=== PATIENT | male | born 1980 | race Caucasian/White ===

== ENCOUNTER 2020-11-22 01:23 | Inpatient (IN) | payer MEDICAID ==
[~2020-11-22] VITALS: Ht 182.9 cm; Wt 152.0 kg
[2020-11-22] VITALS (57 sets, daily range): BP systolic 83–152; BP diastolic 42–88
[2020-11-22] MEDS ORDERED: SODIUM CHLORIDE 0.9% 1,000 ML IVB ONE (01:45)
[2020-11-22] MEDS ORDERED: NALOXONE HCL 0.4 MG/ML VIAL IV ONE (01:45)
[2020-11-22] MEDS ORDERED: NALOXONE HCL 1MG/ML 2ML SYRINGE IV ONE (01:45)
[2020-11-22] MEDS: MIDAZOLAM DRIP 50 mg/50mL 50 ML IV SCH ×4 (01:45→17:52)
[2020-11-22 02:40] LABS: Hematocrit 46.9 % (41.0-53.0); Hemoglobin 16.1 g/dL (13.5-17.5)
[2020-11-22 02:58] LABS: Anion Gap 13 (5-15); Blood Urea Nitrogen 13 mg/dL (7-18); Calcium 8.2 mg/dL (8.5-10.1); Carbon Dioxide 20 mmol/L (21-32); Chloride 105 mmol/L (98-107); Glucose 194 mg/dL (74-106); Magnesium 2.6 mg/dL (1.6-2.6); Potassium 3.5 mmol/L (3.5-5.1); Sodium 138 mmol/L (136-145)
[2020-11-22 03:00] LABS: BUN/Creatinine Ratio 10.2; GFR African American 79 mL/min; GFR Non-African American 66 mL/min; INR 1.08 (0.9-1.15); Partial Thromboplastin Time 25.6 sec (23.0-31.2)
[2020-11-22 03:02] LABS: Lactic Acid w/Reflex 4.4 mmol/L (0.4-2.0)
[2020-11-22 05:03] LABS: Urine Bacteria FEW /hpf (None Seen); Urine Blood 1+ /uL (Negative); Urine Hyaline Cast MOD /lpf (0 - 2); Urine Mucus FEW (None Seen); Urine Specific Gravity 1.019 (1.001-1.035); Urine Sperm PRESENT /hpf (None Seen); Urine WBC 6 /hpf (0 - 3)
[2020-11-22 05:10] LABS: Amphetamine Screen, Urine POSITIVE (NEGATIVE); Barbiturate Scree,Urine NEGATIVE (NEGATIVE); Benzodiazephine Screen, Urine NEGATIVE (NEGATIVE); Cannabinoid Screen, Urine POSITIVE (NEGATIVE); Cocaine Screen, Urine NEGATIVE (NEGATIVE); Opiate Scree,Urine NEGATIVE (NEGATIVE); Phencyclidine Screen, Urine NEGATIVE (NEGATIVE)
[2020-11-22 06:51] LABS: Basophils # (auto) 0.1 10 ^3/uL (0-0.2); Basophils % (auto) 0.5 % (0.0-2.0); Eosinophils # (auto) 0 10 ^3/uL (0-0.8); Eosinophils % (auto) 0.2 % (0.0-7.0); Hematocrit 42.8 % (41.0-53.0); Hemoglobin 14.7 g/dL (13.5-17.5); Lymphocytes % (auto) 9.1 % (10.0-50.0); Mean Corpuscular Hemoglobin 30.2 pg (28.0-32.0); Mean Corpuscular Hgb Conc. 34.3 g/dL (32.0-36.0); Mean Corpuscular Volume 88.1 fL (80.0-100.0); Monocytes # (auto) 0.8 10 ^3/uL (0-1.3); Monocytes % (auto) 7.2 % (0.0-12.0); Neutrophils # (auto) 8.8 10 ^3/uL (1.6-8.6); Nucleated Red Blood Cells % 0.4 %; Red Blood Cells 4.86 10^6/uL (4.5-5.90); Red Cell Distribution Width 13.5 % (11.8-14.3); White Blood Cell 10.6 10^3/uL (4.4-10.8)
[2020-11-22] MEDS ORDERED: SODIUM CHLORIDE 0.9% 3,000 ML IV ONE (07:30)
[2020-11-22] MEDS ORDERED: NOREPINEPHRINE 8 MG/250ML KIT 250 ML IV ONE (07:33)
[2020-11-22] MEDS ORDERED: NOREPINEPHRINE 8 MG/250ML KIT 250 ML IV SCH (08:15)
[2020-11-22] MEDS ORDERED: ALBUTEROL SULF 2.5 MG/0.5ML(0.5%) NEB SOLN NEB SCH (10:45)
[2020-11-22] MEDS ORDERED: IPRATROPIUM BROM 0.5 MG/2.5ML INH SOL NEB SCH (10:45)
[2020-11-22] MEDS ORDERED: MORPHINE SULFATE INJECTION 2 MG/ML SYRG IV PRN (10:45)
[2020-11-22] MEDS ORDERED: NITROGLYCERIN 0.4 MG SL TAB SL PRN (10:45)
[2020-11-22] MEDS: NOREPINEPHRINE 8 MG/250ML KIT 250 ML IV SCH (11:00)
[2020-11-22] MEDS: fentaNYL Drip 2500mCg/250mlNS 250 ML IV SCH (11:09)
[2020-11-22] MEDS: ENOXAPARIN SOD 40 MG/0.4 ML SYRINGE SC SCH (11:10)
[2020-11-22] MEDS: ACETAMINOPHEN 650 mg PER 20.3 mL UD GT PRN (11:32)
[2020-11-22] MEDS: CLINDAMYCIN 300MG IV 50 ML IV SCH ×2 (13:58→22:26)
[2020-11-22] MEDS: DOXYCYCLINE 100MG/250ML 250 ML IV SCH (15:25)
[2020-11-22] MEDS: ALBUTEROL SULF 2.5 MG/0.5ML(0.5%) NEB SOLN NEB SCH (18:36)
[2020-11-22] MEDS: IPRATROPIUM BROM 0.5 MG/2.5ML INH SOL NEB SCH (18:36)
[2020-11-22] MEDS: SODIUM CHLOR 0.9% PF (SALINE LOCK) 10ML VIAL/SYR IV SCH (22:27)
[2020-11-23] VITALS (93 sets, daily range): BP systolic 95–161; BP diastolic 40–84
[2020-11-23] MEDS: ALBUTEROL SULF 2.5 MG/0.5ML(0.5%) NEB SOLN NEB SCH ×4 (00:17→18:30)
[2020-11-23] MEDS: IPRATROPIUM BROM 0.5 MG/2.5ML INH SOL NEB SCH ×4 (00:17→18:30)
[2020-11-23] MEDS: DOXYCYCLINE 100MG/250ML 250 ML IV SCH (03:34)
[2020-11-23 04:26] LABS: Basophils # (auto) 0.1 10 ^3/uL (0-0.2); Basophils % (auto) 0.3 % (0.0-2.0); Eosinophils # (auto) 0 10 ^3/uL (0-0.8); Eosinophils % (auto) 0.2 % (0.0-7.0); Hematocrit 42.5 % (41.0-53.0); Hemoglobin 15.2 g/dL (13.5-17.5); Lymphocytes # (auto) 1.4 10 ^3/uL (0.4-5.4); Mean Corpuscular Hemoglobin 31.4 pg (28.0-32.0); Mean Corpuscular Hgb Conc. 35.7 g/dL (32.0-36.0); Monocytes % (auto) 5.3 % (0.0-12.0); Neutrophils # (auto) 17.1 10 ^3/uL (1.6-8.6); Neutrophils % (auto) 87.2 % (37.0-80.0); Nucleated Red Blood Cells % 0.6 %; Red Blood Cells 4.83 10^6/uL (4.5-5.90); Red Cell Distribution Width 13.8 % (11.8-14.3); White Blood Cell 19.6 10^3/uL (4.4-10.8)
[2020-11-23 04:39] LABS: BUN/Creatinine Ratio 20.3; Potassium 3.8 mmol/L (3.5-5.1)
[2020-11-23] MEDS: CLINDAMYCIN 300MG IV 50 ML IV SCH (06:07)
[2020-11-23] MEDS: MIDAZOLAM DRIP 50 mg/50mL 50 ML IV SCH (09:20)
[2020-11-23] MEDS: SODIUM CHLOR 0.9% PF (SALINE LOCK) 10ML VIAL/SYR IV SCH ×2 (09:20→20:37)
[2020-11-23] MEDS: ENOXAPARIN SOD 40 MG/0.4 ML SYRINGE SC SCH (09:20)
[2020-11-23] MEDS: ACETAMINOPHEN 650 mg PER 20.3 mL UD GT PRN ×2 (09:20→20:38)
[2020-11-23] MEDS: NOREPINEPHRINE 8 MG/250ML KIT 250 ML IV SCH (09:21)
[2020-11-23] MEDS: fentaNYL Drip 2500mCg/250mlNS 250 ML IV SCH (09:21)
[2020-11-23] MEDS ORDERED: PIPERACILLIN-TAZOB 3.375GM 100 ML IV ONE (13:00)
[2020-11-23] MEDS: ESOMEPRAZOLE 40 MG/5ml VIAL INJ IV SCH (16:38)
[2020-11-23] MEDS: PIPERACILLIN-TAZOB 3.375GM 100 ML IV SCH (18:06)
[2020-11-23] MEDS: Jevity 1.2 Cal/Fiber 1 Liter GT SCH (20:38)
[2020-11-23] MEDS: LINEZOLID 600MG/300ML 300 ML IV SCH (20:58)
[2020-11-24] VITALS (102 sets, daily range): BP systolic 87–126; BP diastolic 46–75
[2020-11-24] MEDS: ALBUTEROL SULF 2.5 MG/0.5ML(0.5%) NEB SOLN NEB SCH ×4 (00:06→18:19)
[2020-11-24] MEDS: IPRATROPIUM BROM 0.5 MG/2.5ML INH SOL NEB SCH ×4 (00:06→18:19)
[2020-11-24] MEDS: PIPERACILLIN-TAZOB 3.375GM 100 ML IV SCH ×3 (00:27→11:50)
[2020-11-24] MEDS: MIDAZOLAM DRIP 50 mg/50mL 50 ML IV SCH ×2 (00:28→15:38)
[2020-11-24] MEDS: ACETAMINOPHEN 650 mg PER 20.3 mL UD GT PRN ×3 (03:00→16:00)
[2020-11-24 04:44] LABS: Basophils # (auto) 0 10 ^3/uL (0-0.2); Basophils % (auto) 0.3 % (0.0-2.0); Eosinophils # (auto) 0.1 10 ^3/uL (0-0.8); Hematocrit 39.9 % (41.0-53.0); Lymphocytes # (auto) 1.2 10 ^3/uL (0.4-5.4); Lymphocytes % (auto) 8.2 % (10.0-50.0); Mean Corpuscular Hemoglobin 30.8 pg (28.0-32.0); Mean Corpuscular Hgb Conc. 35.1 g/dL (32.0-36.0); Monocytes # (auto) 1.1 10 ^3/uL (0-1.3); Monocytes % (auto) 7.6 % (0.0-12.0); Neutrophils % (auto) 82.9 % (37.0-80.0); Red Blood Cells 4.54 10^6/uL (4.5-5.90); Red Cell Distribution Width 13.4 % (11.8-14.3); White Blood Cell 14.5 10^3/uL (4.4-10.8)
[2020-11-24 04:52] LABS: Potassium 4.5 mmol/L (3.5-5.1)
[2020-11-24 04:59] LABS: BUN/Creatinine Ratio 18.6; Calcium 8.1 mg/dL (8.5-10.1)
[2020-11-24] MEDS: fentaNYL Drip 2500mCg/250mlNS 250 ML IV SCH (05:47)
[2020-11-24] MEDS: LINEZOLID 600MG/300ML 300 ML IV SCH ×2 (09:26→23:10)
[2020-11-24] MEDS: ENOXAPARIN SOD 40 MG/0.4 ML SYRINGE SC SCH (09:26)
[2020-11-24] MEDS: SODIUM CHLOR 0.9% PF (SALINE LOCK) 10ML VIAL/SYR IV SCH ×2 (09:26→23:10)
[2020-11-24] MEDS: ESOMEPRAZOLE 40 MG/5ml VIAL INJ IV SCH (09:32)
[2020-11-24] MEDS: NOREPINEPHRINE 8 MG/250ML KIT 250 ML IV SCH (10:45)
[2020-11-24] MEDS ORDERED: CEFTRIAXONE SODIUM 2 GM in D5W 5% 50 ML IV ONE (15:45)
[2020-11-24] MEDS: PIPERACILLIN-TAZO 4.5GM 100 ML IV SCH (18:13)
[2020-11-24] MEDS: Jevity 1.2 Cal/Fiber 1 Liter GT SCH (18:26)
[2020-11-25] VITALS (108 sets, daily range): BP systolic 92–133; BP diastolic 58–79
[2020-11-25] MEDS: ALBUTEROL SULF 2.5 MG/0.5ML(0.5%) NEB SOLN NEB SCH ×4 (00:18→18:44)
[2020-11-25] MEDS: IPRATROPIUM BROM 0.5 MG/2.5ML INH SOL NEB SCH ×4 (00:18→18:45)
[2020-11-25] MEDS: PIPERACILLIN-TAZO 4.5GM 100 ML IV SCH ×2 (02:41→09:39)
[2020-11-25 03:53] LABS: Basophils # (auto) 0.1 10 ^3/uL (0-0.2); Basophils % (auto) 0.6 % (0.0-2.0); Eosinophils # (auto) 0.2 10 ^3/uL (0-0.8); Eosinophils % (auto) 2.5 % (0.0-7.0); Hematocrit 39.4 % (41.0-53.0); Hemoglobin 13.6 g/dL (13.5-17.5); Lymphocytes % (auto) 10.8 % (10.0-50.0); Mean Corpuscular Hemoglobin 30.6 pg (28.0-32.0); Mean Corpuscular Hgb Conc. 34.5 g/dL (32.0-36.0); Mean Corpuscular Volume 88.6 fL (80.0-100.0); Monocytes # (auto) 0.9 10 ^3/uL (0-1.3); Monocytes % (auto) 8.8 % (0.0-12.0); Neutrophils # (auto) 7.5 10 ^3/uL (1.6-8.6); Neutrophils % (auto) 77.3 % (37.0-80.0); Nucleated Red Blood Cells % 0.1 %; Red Blood Cells 4.45 10^6/uL (4.5-5.90); Red Cell Distribution Width 13.5 % (11.8-14.3); White Blood Cell 9.7 10^3/uL (4.4-10.8)
[2020-11-25 04:08] LABS: Albumin 2.1 g/dL (3.4-5.0); Calcium 7.7 mg/dL (8.5-10.1); Potassium 3.7 mmol/L (3.5-5.1)
[2020-11-25 04:12] LABS: BUN/Creatinine Ratio 23.2; Bilirubin, Total 1.1 mg/dL (0.2-1.0); Total Protein 6.2 g/dL (6.4-8.2)
[2020-11-25] MEDS: ACETAMINOPHEN 650 mg PER 20.3 mL UD GT PRN ×2 (05:35→20:08)
[2020-11-25] MEDS: MIDAZOLAM DRIP 50 mg/50mL 50 ML IV SCH ×2 (06:23→20:07)
[2020-11-25] MEDS: ONDANSETRON HCL 4 MG/2 ML VIAL IV PRN (06:23)
[2020-11-25] MEDS: fentaNYL Drip 2500mCg/250mlNS 250 ML IV SCH (06:24)
[2020-11-25] MEDS: SODIUM CHLOR 0.9% PF (SALINE LOCK) 10ML VIAL/SYR IV SCH ×2 (09:39→20:07)
[2020-11-25] MEDS: ESOMEPRAZOLE 40 MG/5ml VIAL INJ IV SCH (09:39)
[2020-11-25] MEDS: ENOXAPARIN SOD 40 MG/0.4 ML SYRINGE SC SCH (09:40)
[2020-11-25] MEDS: LINEZOLID 600MG/300ML 300 ML IV SCH ×2 (09:40→20:07)
[2020-11-25] MEDS ORDERED: CEFTRIAXONE SODIUM 2 GM in D5W 5% 50 ML IV SCH (10:00)
[2020-11-25] MEDS: NOREPINEPHRINE 8 MG/250ML KIT 250 ML IV SCH (10:45)
[2020-11-25] MEDS ORDERED: D5W/SOD CHLO 0.9% 1,000 ML IV SCH (13:45)
[2020-11-25] MEDS ORDERED: FUROSEMIDE 20 MG/2 ML VIAL IV ONE (13:45)
[2020-11-25] MEDS: MEROPENEM 1GM IVPB 100 ML IV SCH ×2 (14:16→22:55)
[2020-11-25] MEDS: ACCU-CHEK COMFORT CURVE STRIP VI SCH ×2 (17:52→23:43)
[2020-11-25] MEDS: InsuLIN REG 1unit/0.01ml Soln (100units/ml) SC SCH ×2 (17:52→23:42)
[2020-11-25] MEDS: DEXTROSE (50%) 50ML SYRG IV PRN (23:43)
[2020-11-26] VITALS (105 sets, daily range): BP systolic 88–142; BP diastolic 53–93
[2020-11-26] MEDS: fentaNYL Drip 2500mCg/250mlNS 250 ML IV SCH (00:30)
[2020-11-26] MEDS: ALBUTEROL SULF 2.5 MG/0.5ML(0.5%) NEB SOLN NEB SCH ×4 (00:45→18:13)
[2020-11-26] MEDS: IPRATROPIUM BROM 0.5 MG/2.5ML INH SOL NEB SCH ×4 (00:45→18:13)
[2020-11-26] MEDS: NOREPINEPHRINE 8 MG/250ML KIT 250 ML IV SCH (02:02)
[2020-11-26 04:16] LABS: Basophils # (auto) 0 10 ^3/uL (0-0.2); Basophils % (auto) 0.6 % (0.0-2.0); Eosinophils # (auto) 0.2 10 ^3/uL (0-0.8); Eosinophils % (auto) 3.1 % (0.0-7.0); Hematocrit 41.2 % (41.0-53.0); Hemoglobin 14.3 g/dL (13.5-17.5); Lymphocytes # (auto) 0.9 10 ^3/uL (0.4-5.4); Mean Corpuscular Hemoglobin 30.4 pg (28.0-32.0); Mean Corpuscular Hgb Conc. 34.6 g/dL (32.0-36.0); Mean Corpuscular Volume 87.9 fL (80.0-100.0); Monocytes # (auto) 0.9 10 ^3/uL (0-1.3); Monocytes % (auto) 12.6 % (0.0-12.0); Neutrophils # (auto) 5.3 10 ^3/uL (1.6-8.6); Neutrophils % (auto) 71.7 % (37.0-80.0); Nucleated Red Blood Cells % 0.3 %; Red Blood Cells 4.69 10^6/uL (4.5-5.90); Red Cell Distribution Width 13.6 % (11.8-14.3); White Blood Cell 7.4 10^3/uL (4.4-10.8)
[2020-11-26 04:36] LABS: Calcium 8.3 mg/dL (8.5-10.1); Potassium 3.2 mmol/L (3.5-5.1)
[2020-11-26 04:39] LABS: BUN/Creatinine Ratio 21.4
[2020-11-26] MEDS: MEROPENEM 1GM IVPB 100 ML IV SCH (05:22)
[2020-11-26] MEDS: ACCU-CHEK COMFORT CURVE STRIP VI SCH ×3 (05:22→18:17)
[2020-11-26] MEDS: InsuLIN REG 1unit/0.01ml Soln (100units/ml) SC SCH ×3 (05:22→18:00)
[2020-11-26] MEDS ORDERED: POTASSIUM CHL 20MEQ/100ML 100 ML IV ONE (06:45)
[2020-11-26] MEDS: LINEZOLID 600MG/300ML 300 ML IV SCH (09:17)
[2020-11-26] MEDS: SODIUM CHLOR 0.9% PF (SALINE LOCK) 10ML VIAL/SYR IV SCH ×2 (09:17→21:44)
[2020-11-26] MEDS: ESOMEPRAZOLE 40 MG/5ml VIAL INJ IV SCH (09:17)
[2020-11-26] MEDS: ENOXAPARIN SOD 40 MG/0.4 ML SYRINGE SC SCH (09:17)
[2020-11-26] MEDS: DEXTROSE (50%) 50ML SYRG IV PRN (11:29)
[2020-11-26] MEDS ORDERED: ceFAZolin 1GM/50ML 50 ML IV ONE (12:00)
[2020-11-26] MEDS: D5W 5% 1,000 ML IV SCH (12:16)
[2020-11-26] MEDS: ceFAZolin 1GM/50ML 50 ML IV SCH ×2 (13:24→21:44)
[2020-11-26] MEDS: MIDAZOLAM DRIP 50 mg/50mL 50 ML IV SCH (21:49)
[2020-11-27] VITALS (106 sets, daily range): BP systolic 98–128; BP diastolic 59–94
[2020-11-27] MEDS: ALBUTEROL SULF 2.5 MG/0.5ML(0.5%) NEB SOLN NEB SCH ×4 (00:25→18:49)
[2020-11-27] MEDS: IPRATROPIUM BROM 0.5 MG/2.5ML INH SOL NEB SCH ×4 (00:25→18:49)
[2020-11-27] MEDS: D5W 5% 1,000 ML IV SCH ×2 (01:05→17:03)
[2020-11-27] MEDS: MIDAZOLAM DRIP 50 mg/50mL 50 ML IV SCH ×3 (02:38→19:51)
[2020-11-27] MEDS: ACCU-CHEK COMFORT CURVE STRIP VI SCH ×4 (02:42→18:00)
[2020-11-27] MEDS: fentaNYL Drip 2500mCg/250mlNS 250 ML IV SCH ×2 (02:57→19:52)
[2020-11-27 04:18] LABS: Basophils # (auto) 0.1 10 ^3/uL (0-0.2); Eosinophils # (auto) 0.2 10 ^3/uL (0-0.8); Eosinophils % (auto) 4.5 % (0.0-7.0); Hematocrit 40.8 % (41.0-53.0); Hemoglobin 14.4 g/dL (13.5-17.5); Lymphocytes % (auto) 20.4 % (10.0-50.0); Mean Corpuscular Hemoglobin 30.4 pg (28.0-32.0); Mean Corpuscular Hgb Conc. 35.4 g/dL (32.0-36.0); Mean Corpuscular Volume 86.1 fL (80.0-100.0); Monocytes # (auto) 0.8 10 ^3/uL (0-1.3); Neutrophils # (auto) 2.9 10 ^3/uL (1.6-8.6); Neutrophils % (auto) 58.1 % (37.0-80.0); Nucleated Red Blood Cells % 0.2 %; Red Blood Cells 4.74 10^6/uL (4.5-5.90)
[2020-11-27 04:37] LABS: Calcium 8.6 mg/dL (8.5-10.1); Potassium 3.1 mmol/L (3.5-5.1)
[2020-11-27 04:40] LABS: BUN/Creatinine Ratio 15.4
[2020-11-27] MEDS: ceFAZolin 1GM/50ML 50 ML IV SCH ×3 (05:38→21:31)
[2020-11-27] MEDS: InsuLIN REG 1unit/0.01ml Soln (100units/ml) SC SCH ×4 (05:47→18:42)
[2020-11-27] MEDS: ENOXAPARIN SOD 40 MG/0.4 ML SYRINGE SC SCH (10:00)
[2020-11-27] MEDS: ESOMEPRAZOLE 40 MG/5ml VIAL INJ IV SCH (10:00)
[2020-11-27] MEDS: SODIUM CHLOR 0.9% PF (SALINE LOCK) 10ML VIAL/SYR IV SCH ×2 (10:05→21:32)
[2020-11-27] MEDS: POTASSIUM CHL 20MEQ/100ML 100 ML IV SCH ×2 (11:16→12:45)
[2020-11-27] MEDS: NOREPINEPHRINE 8 MG/250ML KIT 250 ML IV SCH (11:16)
[2020-11-27] MEDS ORDERED: PROPOFOL 0 ML IV ONE (15:35)
[2020-11-27] MEDS: PROPOFOL 100 ML IV SCH (17:04)
[2020-11-27] MEDS: ACETYLCYSTEINE 20%(200MG/ML) SOL 4ML NEB SCH (18:49)
[2020-11-28] VITALS (95 sets, daily range): BP systolic 85–132; BP diastolic 51–111
[2020-11-28] MEDS: IPRATROPIUM BROM 0.5 MG/2.5ML INH SOL NEB SCH ×4 (00:08→18:25)
[2020-11-28] MEDS: ALBUTEROL SULF 2.5 MG/0.5ML(0.5%) NEB SOLN NEB SCH ×4 (00:08→18:24)
[2020-11-28] MEDS: ACETYLCYSTEINE 20%(200MG/ML) SOL 4ML NEB SCH ×4 (00:09→18:25)
[2020-11-28] MEDS: MIDAZOLAM DRIP 50 mg/50mL 50 ML IV SCH ×2 (00:18→21:59)
[2020-11-28] MEDS: ACCU-CHEK COMFORT CURVE STRIP VI SCH ×4 (01:26→19:57)
[2020-11-28 04:42] LABS: BUN/Creatinine Ratio 17.5; Calcium 8.2 mg/dL (8.5-10.1); Potassium 3.2 mmol/L (3.5-5.1)
[2020-11-28 04:49] LABS: Hematocrit 38.6 % (41.0-53.0); Hemoglobin 13.6 g/dL (13.5-17.5); Mean Corpuscular Hemoglobin 30.5 pg (28.0-32.0); Mean Corpuscular Hgb Conc. 35.1 g/dL (32.0-36.0); Mean Corpuscular Volume 86.9 fL (80.0-100.0); Red Blood Cells 4.45 10^6/uL (4.5-5.90); Red Cell Distribution Width 13.2 % (11.8-14.3); White Blood Cell 4.6 10^3/uL (4.4-10.8)
[2020-11-28 04:54] LABS: Basophils % (manual) 0 (0.0-2.0); Blast Cells 0; Myelocytes % 0; Promyelocytes % 0; Reactive Lymphocytes 0
[2020-11-28] MEDS: InsuLIN REG 1unit/0.01ml Soln (100units/ml) SC SCH ×4 (05:42→18:00)
[2020-11-28] MEDS: ceFAZolin 1GM/50ML 50 ML IV SCH ×3 (05:42→21:59)
[2020-11-28 05:51] LABS: Band Neutrophils % (manual) 13; Eosinophils % (manual) 2 (0-7); Lymphocytes % (manual) 16 (10.0-50.0); Metamyelocytes % 1; Monocytes % (manual) 21 (0-12)
[2020-11-28] MEDS: ENOXAPARIN SOD 40 MG/0.4 ML SYRINGE SC SCH (10:30)
[2020-11-28] MEDS: ESOMEPRAZOLE 40 MG/5ml VIAL INJ IV SCH (10:30)
[2020-11-28] MEDS: D5W 5% 1,000 ML IV SCH (10:30)
[2020-11-28] MEDS: SODIUM CHLOR 0.9% PF (SALINE LOCK) 10ML VIAL/SYR IV SCH ×2 (10:31→21:59)
[2020-11-28] MEDS: NOREPINEPHRINE 8 MG/250ML KIT 250 ML IV SCH (10:45)
[2020-11-28] MEDS: POTASSIUM CHL 20MEQ/100ML 100 ML IV SCH ×2 (12:32→14:05)
[2020-11-28] MEDS: PROPOFOL 100 ML IV SCH (16:00)
[2020-11-29] VITALS (93 sets, daily range): BP systolic 96–152; BP diastolic 57–92
[2020-11-29] MEDS: ACCU-CHEK COMFORT CURVE STRIP VI SCH ×4 (00:09→18:09)
[2020-11-29] MEDS: IPRATROPIUM BROM 0.5 MG/2.5ML INH SOL NEB SCH ×4 (00:30→19:07)
[2020-11-29] MEDS: ALBUTEROL SULF 2.5 MG/0.5ML(0.5%) NEB SOLN NEB SCH ×4 (00:30→19:07)
[2020-11-29] MEDS: ACETYLCYSTEINE 20%(200MG/ML) SOL 4ML NEB SCH ×4 (00:31→19:07)
[2020-11-29] MEDS: D5W 5% 1,000 ML IV SCH ×3 (02:18→20:34)
[2020-11-29 03:47] LABS: Basophils # (auto) 0 10 ^3/uL (0-0.2); Basophils % (auto) 0.5 % (0.0-2.0); Eosinophils # (auto) 0.3 10 ^3/uL (0-0.8); Eosinophils % (auto) 4.3 % (0.0-7.0); Hematocrit 39.5 % (41.0-53.0); Hemoglobin 14.2 g/dL (13.5-17.5); Lymphocytes # (auto) 0.4 10 ^3/uL (0.4-5.4); Lymphocytes % (auto) 7.4 % (10.0-50.0); Mean Corpuscular Hemoglobin 30.8 pg (28.0-32.0); Mean Corpuscular Volume 85.8 fL (80.0-100.0); Monocytes % (auto) 17.1 % (0.0-12.0); Neutrophils # (auto) 4.2 10 ^3/uL (1.6-8.6); Neutrophils % (auto) 70.7 % (37.0-80.0); Nucleated Red Blood Cells % 0.1 %; Red Cell Distribution Width 13.3 % (11.8-14.3)
[2020-11-29 03:56] LABS: BUN/Creatinine Ratio 17.8; Calcium 8.3 mg/dL (8.5-10.1); Potassium 3.4 mmol/L (3.5-5.1)
[2020-11-29] MEDS: InsuLIN REG 1unit/0.01ml Soln (100units/ml) SC SCH ×4 (06:00→18:00)
[2020-11-29] MEDS: ceFAZolin 1GM/50ML 50 ML IV SCH ×2 (06:30→13:34)
[2020-11-29] MEDS: SODIUM CHLOR 0.9% PF (SALINE LOCK) 10ML VIAL/SYR IV SCH ×2 (10:00→22:43)
[2020-11-29] MEDS: fentaNYL Drip 2500mCg/250mlNS 250 ML IV SCH (10:45)
[2020-11-29] MEDS: NOREPINEPHRINE 8 MG/250ML KIT 250 ML IV SCH (10:45)
[2020-11-29] MEDS: POTASSIUM CHL 20MEQ/100ML 100 ML IV SCH ×2 (10:54→13:33)
[2020-11-29] MEDS: ESOMEPRAZOLE 40 MG/5ml VIAL INJ IV SCH (10:54)
[2020-11-29] MEDS: ENOXAPARIN SOD 40 MG/0.4 ML SYRINGE SC SCH (10:54)
[2020-11-29] MEDS ORDERED: LORazepam 2MG/ML-1ML VIAL ONE (14:26)
[2020-11-29] MEDS ORDERED: LORazepam 2MG/ML-1ML VIAL IV PRN ×2 (14:30→15:30)
[2020-11-29] MEDS ORDERED: MORPHINE SULFATE INJECTION 2 MG/ML SYRG IV PRN (15:30)
[2020-11-29] MEDS ORDERED: MEROPENEM 1GM IVPB 100 ML IV ONE (15:45)
[2020-11-29] MEDS: PROPOFOL 100 ML IV SCH (16:00)
[2020-11-29] MEDS ORDERED: ACETAMINOPHEN 650 MG RECT SUPP PR ONE (16:03)
[2020-11-29] MEDS ORDERED: ACETAMINOPHEN 650 MG RECT SUPP PR PRN (17:00)
[2020-11-29] MEDS: chlordiazePOXIDE HCL 25 MG CAP PO SCH (18:00)
[2020-11-29] MEDS: NYSTATIN (MOUTH-THROAT) 500,000 UNITS/5 ML SUSP MT SCH ×2 (18:08→22:43)
[2020-11-29] MEDS: LINEZOLID 600MG/300ML 300 ML IV SCH (20:35)
[2020-11-29] MEDS: MEROPENEM 1GM IVPB 100 ML IV SCH (22:43)
[2020-11-30] VITALS (16 sets, daily range): BP systolic 106–152; BP diastolic 70–89
[2020-11-30] MEDS: IPRATROPIUM BROM 0.5 MG/2.5ML INH SOL NEB SCH ×4 (00:02→19:16)
[2020-11-30] MEDS: ALBUTEROL SULF 2.5 MG/0.5ML(0.5%) NEB SOLN NEB SCH ×4 (00:02→19:16)
[2020-11-30] MEDS: ACETYLCYSTEINE 20%(200MG/ML) SOL 4ML NEB SCH ×4 (00:02→19:16)
[2020-11-30] MEDS: InsuLIN REG 1unit/0.01ml Soln (100units/ml) SC SCH ×4 (00:06→18:00)
[2020-11-30 04:00] LABS: Basophils # (auto) 0 10 ^3/uL (0-0.2); Basophils % (auto) 0.4 % (0.0-2.0); Eosinophils # (auto) 0.3 10 ^3/uL (0-0.8); Eosinophils % (auto) 4.4 % (0.0-7.0); Hematocrit 40.9 % (41.0-53.0); Hemoglobin 14.6 g/dL (13.5-17.5); Lymphocytes # (auto) 0.8 10 ^3/uL (0.4-5.4); Lymphocytes % (auto) 11.5 % (10.0-50.0); Mean Corpuscular Hemoglobin 30.3 pg (28.0-32.0); Mean Corpuscular Hgb Conc. 35.7 g/dL (32.0-36.0); Mean Corpuscular Volume 84.8 fL (80.0-100.0); Monocytes % (auto) 13.9 % (0.0-12.0); Neutrophils # (auto) 4.9 10 ^3/uL (1.6-8.6); Neutrophils % (auto) 69.8 % (37.0-80.0); Nucleated Red Blood Cells % 0.3 %; Red Blood Cells 4.83 10^6/uL (4.5-5.90); Red Cell Distribution Width 13.1 % (11.8-14.3)
[2020-11-30 04:21] LABS: Potassium 3.9 mmol/L (3.5-5.1)
[2020-11-30 04:31] LABS: BUN/Creatinine Ratio 19.6; Calcium 9.1 mg/dL (8.5-10.1)
[2020-11-30] MEDS: chlordiazePOXIDE HCL 25 MG CAP PO SCH ×4 (05:29→18:00)
[2020-11-30] MEDS: NYSTATIN (MOUTH-THROAT) 500,000 UNITS/5 ML SUSP MT SCH ×4 (05:29→22:00)
[2020-11-30] MEDS: MEROPENEM 1GM IVPB 100 ML IV SCH ×3 (06:00→22:15)
[2020-11-30] MEDS: ACCU-CHEK COMFORT CURVE STRIP VI SCH ×4 (06:00→18:00)
[2020-11-30] MEDS: ESOMEPRAZOLE 40 MG/5ml VIAL INJ IV SCH (08:40)
[2020-11-30] MEDS: ENOXAPARIN SOD 40 MG/0.4 ML SYRINGE SC SCH (08:40)
[2020-11-30] MEDS: SODIUM CHLOR 0.9% PF (SALINE LOCK) 10ML VIAL/SYR IV SCH ×2 (08:40→22:15)
[2020-11-30] MEDS: LINEZOLID 600MG/300ML 300 ML IV SCH ×2 (08:41→20:51)
[2020-11-30] MEDS: D5W 5% 1,000 ML IV SCH ×2 (09:05→22:16)
[2020-11-30] MEDS ORDERED: IOHEXOL 300 MG/ML 100ML BOTTLE IJ ONE (09:35)
[2020-11-30] MEDS: ONDANSETRON HCL 4 MG/2 ML VIAL IV PRN (09:59)
[2020-11-30] MEDS: NOREPINEPHRINE 8 MG/250ML KIT 250 ML IV SCH (10:45)
[2020-11-30] MEDS: MIDAZOLAM DRIP 50 mg/50mL 50 ML IV SCH (10:45)
[2020-11-30] MEDS: fentaNYL Drip 2500mCg/250mlNS 250 ML IV SCH (10:45)
[2020-11-30] MEDS: LORazepam 2MG/ML-1ML VIAL IV PRN (22:15)
[2020-12-01] MEDS: ALBUTEROL SULF 2.5 MG/0.5ML(0.5%) NEB SOLN NEB SCH ×3 (00:21→11:42)
[2020-12-01] MEDS: ACETYLCYSTEINE 20%(200MG/ML) SOL 4ML NEB SCH ×3 (00:21→11:42)
[2020-12-01] MEDS: IPRATROPIUM BROM 0.5 MG/2.5ML INH SOL NEB SCH ×3 (00:21→11:42)
[2020-12-01 05:06] VITALS: BP 141/80
[2020-12-01] MEDS: chlordiazePOXIDE HCL 25 MG CAP PO SCH ×5 (05:58→23:56)
[2020-12-01] MEDS: NYSTATIN (MOUTH-THROAT) 500,000 UNITS/5 ML SUSP MT SCH ×4 (06:00→21:31)
[2020-12-01] MEDS: InsuLIN REG 1unit/0.01ml Soln (100units/ml) SC SCH ×2 (06:00)
[2020-12-01] MEDS: MEROPENEM 1GM IVPB 100 ML IV SCH (06:07)
[2020-12-01] MEDS: ACCU-CHEK COMFORT CURVE STRIP VI SCH ×2 (06:35)
[2020-12-01] MEDS: LINEZOLID 600MG/300ML 300 ML IV SCH (08:25)
[2020-12-01 09:00] VITALS: BP 139/86
[2020-12-01] MEDS: ENOXAPARIN SOD 40 MG/0.4 ML SYRINGE SC SCH (09:35)
[2020-12-01] MEDS: SODIUM CHLOR 0.9% PF (SALINE LOCK) 10ML VIAL/SYR IV SCH ×2 (10:00→21:31)
[2020-12-01 10:10] LABS: Calcium 8.6 mg/dL (8.5-10.1); Potassium 3.7 mmol/L (3.5-5.1)
[2020-12-01 10:22] LABS: Basophils # (auto) 0.2 10 ^3/uL (0-0.2); Basophils % (auto) 2.4 % (0.0-2.0); Eosinophils # (auto) 0.2 10 ^3/uL (0-0.8); Eosinophils % (auto) 1.9 % (0.0-7.0); Hematocrit 42.9 % (41.0-53.0); Hemoglobin 15.3 g/dL (13.5-17.5); Lymphocytes % (auto) 9.8 % (10.0-50.0); Mean Corpuscular Hemoglobin 30.4 pg (28.0-32.0); Mean Corpuscular Hgb Conc. 35.6 g/dL (32.0-36.0); Mean Corpuscular Volume 85.4 fL (80.0-100.0); Monocytes # (auto) 1.1 10 ^3/uL (0-1.3); Monocytes % (auto) 10.9 % (0.0-12.0); Neutrophils # (auto) 7.4 10 ^3/uL (1.6-8.6); Nucleated Red Blood Cells % 0.1 %; Red Blood Cells 5.02 10^6/uL (4.5-5.90); Red Cell Distribution Width 13.4 % (11.8-14.3); White Blood Cell 9.9 10^3/uL (4.4-10.8)
[2020-12-01] MEDS: ESOMEPRAZOLE 40 MG/5ml VIAL INJ IV SCH (10:35)
[2020-12-01 11:13] VITALS: BP 139/86
[2020-12-01] MEDS ORDERED: levoFLOXacin 500MG 100 ML IV ONE (11:15)
[2020-12-01] MEDS: D5W 5% 1,000 ML IV SCH ×2 (11:45→21:32)
[2020-12-01 13:00] VITALS: BP 20/73
[2020-12-01 17:00] VITALS: BP 144/81
[2020-12-01] MEDS: LORazepam 2MG/ML-1ML VIAL IV PRN (17:27)
[2020-12-01 22:03] VITALS: BP 130/84
[2020-12-02 05:05] VITALS: BP 116/67
[2020-12-02] MEDS: chlordiazePOXIDE HCL 25 MG CAP PO SCH ×3 (05:26→17:30)
[2020-12-02] MEDS: NYSTATIN (MOUTH-THROAT) 500,000 UNITS/5 ML SUSP MT SCH ×4 (05:26→21:23)
[2020-12-02] MEDS: ACETYLCYSTEINE 20%(200MG/ML) SOL 4ML NEB SCH ×2 (06:00→12:00)
[2020-12-02] MEDS: ALBUTEROL SULF 2.5 MG/0.5ML(0.5%) NEB SOLN NEB SCH ×2 (06:00→12:00)
[2020-12-02] MEDS: IPRATROPIUM BROM 0.5 MG/2.5ML INH SOL NEB SCH ×2 (06:00→12:00)
[2020-12-02 09:00] VITALS: BP 147/84
[2020-12-02] MEDS: levoFLOXacin 500MG 100 ML IV SCH (09:25)
[2020-12-02] MEDS: SODIUM CHLOR 0.9% PF (SALINE LOCK) 10ML VIAL/SYR IV SCH ×2 (10:00→21:22)
[2020-12-02] MEDS: ENOXAPARIN SOD 40 MG/0.4 ML SYRINGE SC SCH (10:05)
[2020-12-02] MEDS: ESOMEPRAZOLE 40 MG/5ml VIAL INJ IV SCH (10:15)
[2020-12-02 13:00] VITALS: BP 129/73
[2020-12-02] MEDS ORDERED: ALBUTEROL SULF 2.5 MG/0.5ML(0.5%) NEB SOLN NEB PRN (16:00)
[2020-12-02] MEDS ORDERED: IPRATROPIUM BROM 0.5 MG/2.5ML INH SOL NEB PRN (16:00)
[2020-12-02 17:00] VITALS: BP 138/93
[2020-12-02] MEDS: D5W 5% 1,000 ML IV SCH (17:15)
[2020-12-02 21:47] VITALS: BP 136/86
[2020-12-03] MEDS: D5W 5% 1,000 ML IV SCH (03:45)
[2020-12-03 05:04] VITALS: BP 126/80
[2020-12-03] MEDS: NYSTATIN (MOUTH-THROAT) 500,000 UNITS/5 ML SUSP MT SCH (05:43)
[2020-12-03] MEDS: chlordiazePOXIDE HCL 25 MG CAP PO SCH ×2 (05:44)
[2020-12-03 08:42] VITALS: BP 134/73
[2020-12-03] MEDS: ESOMEPRAZOLE 40 MG/5ml VIAL INJ IV SCH (09:37)
[2020-12-03] MEDS: ENOXAPARIN SOD 40 MG/0.4 ML SYRINGE SC SCH (09:37)
[2020-12-03] MEDS: SODIUM CHLOR 0.9% PF (SALINE LOCK) 10ML VIAL/SYR IV SCH (09:38)
[2020-12-03] MEDS: levoFLOXacin 500MG 100 ML IV SCH (09:38)
[2020-12-03] MEDS ORDERED: LEVO750T64 PO (10:46)
[2020-12-03 11:43] VITALS: BP 134/73
== END 2020-12-03 13:05 | disposition home or self-care (01) | DRG 720 ==
LOC: ER 01:27 → EDBD 01:27 → MERGE 10:33 → ICU WEST 10:33 → TELE-EAST 11-30 11:40
PROVIDERS: ADMIT Nurse Practitioner Acute Care; ATTEND Internal Medicine Pulmonary Disease
PROC: 5A1955Z Respiratory Ventilation, Greater than 96 Consecutive Hours (ICD-10-PCS; principal; 2020-11-22)
PROC: 0BH17EZ Insertion of Endotracheal Airway into Trachea, Via Natural or Artificial Opening (ICD-10-PCS; 2020-11-22)
PROC: 0D9670Z Drainage of Stomach with Drainage Device, Via Natural or Artificial Opening (ICD-10-PCS; 2020-11-22)
PROC: 02H633Z Insertion of Infusion Device into Right Atrium, Percutaneous Approach (ICD-10-PCS; 2020-11-23)
DX: A41.9 Sepsis, unspecified organism (principal); J96.01 Acute respiratory failure with hypoxia; J69.0 Pneumonitis due to inhalation of food and vomit; R65.21 Severe sepsis with septic shock; G92 Toxic encephalopathy; Z99.11 Dependence on respirator [ventilator] status; E66.9 Obesity, unspecified; Z68.36 Body mass index [BMI] 36.0-36.9, adult; Z20.822 Contact with and (suspected) exposure to COVID-19; T50.991A Poisoning by other drugs, medicaments and biological substances, accidental (unintentional), initial encounter; B19.20 Unspecified viral hepatitis C without hepatic coma; F19.10 Other psychoactive substance abuse, uncomplicated; Y92.89 Other specified places as the place of occurrence of the external cause
CPT/HCPCS: 36415; 36569; 36600; 70450; 71045; 71260; 74177; 80048; 80053; 80307; 80320; 81001; 82805; 82962; 83036; 83605; 83735; 84484; 85007; 85014; 85018; 85025; 85027; 85610; 85730; 87040; 87070; 87077; 87081; 87086; 87186; 87205; 87426; 93005; 93306; 94002; 94003; 94640; 96361; 96374; G0378; J0690; J1956; J2185; J2250; J2405; J2543; J2704; J3480; J3490; J7042; J7060